=== PATIENT | female | born 1970 | race American Indian/Alaskan Native ===

== ENCOUNTER 2016-03-14 14:43 | Emergency (ER) | payer MEDICARE ==
[2016-03-14 15:29] VITALS: BP 140/78
[2016-03-14 16:24] LABS: Anion Gap 15 mmol/L; BUN/Creatinine Ratio 21.66; Blood Urea Nitrogen 13 mg/dL (7-17); Calcium 9.2 mg/dL (8.4-10.2); Carbon Dioxide 28 mmol/L (22-30); Chloride 99.5 mmol/L (98-107); Glucose 87 mg/dL (65-100); Sodium 138 mmol/L (137-145)
[2016-03-14 16:48] LABS: Basophils % (Auto) 0.3 % (0.0-1.8); Eosinophils % (Auto) 1.5 % (0.0-4.3); Hematocrit 42.2 % (30.3-42.9); Hemoglobin 13.8 gm/dl (10.1-14.3); Mean Corpuscular HGB Conc 33 % (30-34); Mean Corpuscular Hemoglobin 30 pg (28-32); Mean Corpuscular Volume 92 fl (79-97); Platelet Count 159 K/mm3 (140-440); Red Cell Distribution Width 13.6 % (13.2-15.2); White Blood Count 4.8 K/mm3 (4.5-11.0)
--- NOTE | 2016-03-15 07:26 | ED Elopement Review ---
ED Pt Elopement review - Results review Lab results: Laboratory Tests 03/14/16 03/14/16 15:44 15:44 WBC 4.8 RBC 4.60 Hgb 13.8 Hct 42.2 MCV 92 MCH 30 MCHC 33 RDW 13.6 Plt Count 159 Lymph % (Auto) 37.4 H [place] % (Auto) 10.1 H Eos % (Auto) 1.5 Baso % (Auto) 0.3 Lymph # 1.8 [place] # 0.5 Eos # 0.1 Baso # 0.0 Seg Neutrophils % 50.7 Seg Neutrophils # 2.5 Sodium 138 Potassium 4.0 Chloride 99.5 Carbon Dioxide 28 Anion Gap 15 BUN 13 Creatinine 0.6 L Estimated GFR > 60 BUN/Creatinine Ratio 21.66 Glucose 87 Calcium 9.2 Troponin T < 0.010 - Call Back decision Pt Call Back Decision: No action required
== END 2016-03-14 23:46 | disposition left against medical advice (07) ==
LOC: ED 14:43
DX: R20.2 Paresthesia of skin (principal); Z53.21 Procedure and treatment not carried out due to patient leaving prior to being seen by health care provider
CPT/HCPCS: 36415; 80048; 84484; 85025; 93005; 93010

== ENCOUNTER 2016-03-15 08:06 | Emergency (ER) | payer MEDICARE, MEDICAID ==
[2016-03-15 08:19] VITALS: BP 142/75
--- NOTE | 2016-03-15 09:15 | Emergency Department Report ---
ED General Adult HPI - General Chief complaint: Fall Stated complaint: NUMBNESS/TINGLING L ARM X 3 DAYS Time Seen by Provider: 03/15/16 08:40 Source: patient Mode of arrival: Ambulatory Limitations: No Limitations - History of Present Illness Initial comments: 45-year-old female presents to the ED with multiple complaints. Patient states she fell the other day having pain around her left-sided rib. Denies pain with breathing. Patient also complains about right-sided eye pain described as a pressure. Denies problem with her vision. Patient also states that she is having numbness and tingling going down her left arm but denies any chest pain or shoulder pain or neck pain. States that the symptoms of the numbness and left arm are currently not present. - Related Data Allergies Allergy/AdvReac Type Severity Reaction Status Date / Time acetaminophen [From Percocet] Allergy Unknown Verified 03/15/16 08:22 codeine Allergy Unknown Verified 03/15/16 08:22 hydromorphone HCl Allergy Unknown Verified 03/15/16 08:22 [From Dilaudid] morphine Allergy Unknown Verified 03/15/16 08:22 oxycodone HCl [From Percocet] Allergy Unknown Verified 03/15/16 08:22 tramadol Allergy Unknown Verified 03/15/16 08:22 ED Review of Systems ROS: Stated complaint: NUMBNESS/TINGLING L ARM X 3 DAYS Other details as noted in HPI Constitutional: denies: chills, fever Eyes: eye pain. denies: eye discharge, vision change ENT: denies: ear pain, throat pain Respiratory: denies: cough, shortness of breath, wheezing Cardiovascular: denies: chest pain, palpitations Endocrine: no symptoms reported Gastrointestinal: denies: abdominal pain, nausea, diarrhea Genitourinary: denies: urgency, dysuria, discharge Musculoskeletal: arthralgia. denies: back pain, joint swelling Skin: denies: rash, lesions Neurological: denies: headache, weakness, paresthesias Psychiatric: denies: anxiety, depression Hematological/Lymphatic: denies: easy bleeding, easy bruising ED Past Medical Hx - Past Medical History Hx Hypertension: Yes Hx Congestive Heart Failure: Yes Additional medical history: HEART MURMUR. "LEAKY VALVES" - Surgical History Hx Cholecystectomy: Yes Additional Surgical History: X 2. TUBAL LIGATION. LUMPECTOMY. HYSTERECTOMY - Social History Smoking Status: Never Smoker Substance Use Type: None ED Physical Exam - General Limitations: No Limitations General appearance: alert, in no apparent distress - Head Head exam: Present: atraumatic, normocephalic - Eye Eye exam: Present: normal appearance, PERRL, EOMI Pupils: Present: normal accommodation - ENT ENT exam: Present: mucous membranes moist - Neck Neck exam: Present: normal inspection - Respiratory Respiratory exam: Present: normal lung sounds bilaterally, chest wall tenderness (left sided. Normal breath sounds. No crepitus.). Absent: respiratory distress - Cardiovascular Cardiovascular Exam: Present: regular rate, normal rhythm. Absent: systolic murmur, diastolic murmur, rubs, gallop - GI/Abdominal GI/Abdominal exam: Present: soft, normal bowel sounds - Extremities Exam Extremities exam: Present: normal inspection - Back Exam Back exam: Present: normal inspection - Neurological Exam Neurological exam: Present: alert, oriented X3, normal gait, other (left arm has normal strength. Normal sensation.) - Psychiatric Psychiatric exam: Present: normal affect, normal mood - Skin Skin exam: Present: warm, dry, intact, normal color. Absent: rash ED Course Vital Signs 03/15/16 08:12 Temperature 97.4 F L Pulse Rate 64 Respiratory 18 Rate Blood Pressure 142/75 O2 Sat by Pulse 100 Oximetry ED Medical Decision Making - Medical Decision Making Patient in no acute distress at this time. We'll follow-up with ophthalmology for intraocular pressure testing of the right eye. Otherwise visual exam is normal. Left arm appears normal as well. We'll prescribe diclofenac for the left-sided rib pain. Critical care attestation.: If time is entered above; I have spent that time in minutes in the direct care of this critically ill patient, excluding procedure time. ED Disposition Clinical Impression: Numbness and tingling in left hand, Pain, eye, right, Fall, Chest wall contusion Disposition: DISCHARGED TO HOME OR SELFCARE Is pt being admited?: No Does the pt Need Aspirin: No Condition: Good Instructions: Eye Pain (ED) Additional Instructions: follow up with ophthomology to check for glaucoma. Referrals: PRIMARY CARE, [Primary Care Provider] - 3-5 Days ANA LILIA JUAN MD [Staff Physician] - 3-5 Days Forms: Work/School Release Form(ED) Time of Disposition: :22
== END 2016-03-15 09:36 | disposition home or self-care (01) ==
LOC: ED 08:06
DX: S20.211A Contusion of right front wall of thorax, initial encounter (principal); I10 Essential (primary) hypertension; I50.9 Heart failure, unspecified; W19.XXXA Unspecified fall, initial encounter; Y93.89 Activity, other specified; Y92.89 Other specified places as the place of occurrence of the external cause; Y99.8 Other external cause status; Z88.5 Allergy status to narcotic agent; Z88.6 Allergy status to analgesic agent; Z88.8 Allergy status to other drugs, medicaments and biological substances
CPT/HCPCS: 99282